=== PATIENT | female | born 1955 | race Caucasian/White ===

== ENCOUNTER 2024-02-27 15:19 | Emergency (ER) | payer MEDICARE, SELFPAY ==
[2024-02-27 15:22] VITALS: BP 160/79; PULSE 69; TEMP 36.7; O2SAT 98; BMI 34.4
--- NOTE | 2024-02-27 15:33 | US_ITS ---
[facility] [id number] Patient Name: TRUDY HI MRN: [id number] date: 1955 Sex: F Assigned Patient Location: ER Current Patient Location: ED.MAIN Accession/Order Number: [id number] Exam Date: 02/27/2024 15:45 Report Date: 02/27/2024 17:03 At the request of: JUDITH LOPEZ Procedure: US venous doppler LE LT EXAM: US venous doppler LE LT HISTORY: swelling COMPARISON: None. TECHNIQUE: Evaluation of the deep veins of the left lower extremity was performed utilizing B-mode, color flow and spectral analysis. FINDINGS: The visualized vessels comprising the deep venous systems from the common femoral vein through the calf veins demonstrate appropriate compressibility, spontaneous color Doppler flow, and augmentation of flow on spectral Doppler with distal compression. Additional findings: None. US/US venous doppler LE LT IMPRESSION: No sonographic evidence of deep venous thrombosis of the left lower extremity. Electronically authenticated by: ELISEO HOROWITZ Date: 02/27/2024 17:03
[2024-02-27 15:53] LABS: Basophils Absolute Auto 0.1 10^3/uL (0.0-0.1); Basophils Percent Auto 0.9 % (0.2-2.0); Eosinophils Absolute Auto 0.1 10^3/uL (0.0-0.7); Eosinophils Percent Auto 2.3 % (0.9-7.0); Hematocrit 39.5 % (36.0-48.0); Hemoglobin 12.9 g/dL (12.0-16.0); Immature Granulocytes Abs Auto 0.01 10^3/uL (0.00-0.03); Immature Granulocytes Pct Auto 0.2 % (0.0-0.5); Lymphocytes Percent Auto 17.4 % (20.5-60.0); Mean Corpuscular HGB Conc 32.7 g/dL (29.9-35.2); Mean Corpuscular Volume 85.9 fL (81.0-99.0); Mean Platelet Volume 11.2 fL (9.5-13.5); Monocytes Absolute Auto 0.5 10^3/uL (0.3-0.8); Monocytes Percent Auto 8.6 % (1.7-12.0); Neutrophils Percent Auto 70.6 % (43.0-75.0); Platelet Count 192 10^3/uL (150-450); Red Cell Distribution Width 13.3 % (11.0-15.0); White Blood Count 5.7 10^3/uL (4.0-11.0)
[2024-02-27 16:01] LABS: Anion Gap 14.4; BUN Creatinine Ratio 17.2; Calcium 9.8 mg/dL (8.5-10.1); Carbon Dioxide 28.3 mmol/L (21.0-32.0); Chloride 103 mmol/L (98-107); Estimated GFR (African America >60 (>=60 mL/min/1.73m^2); Estimated GFR (Non-African Ame 56 (>=60 mL/min/1.73m^2); Glucose 105 mg/dL (74-106); Potassium 3.7 mmol/L (3.5-5.1); Sodium 142 mmol/L (136-145)
--- NOTE | 2024-02-27 17:21 | ED_ITS ---
HPI HPI - General Adult General Chief complaint: Extremity Problem, Nontraumatic Stated complaint: Dr Kamara sent over Possible blood clot Time Seen by Provider: 02/27/24 15:19 Source: patient Mode of arrival: walk-in History of Present Illness HPI narrative: 60-year-old female to the emergency department chief complaint of swelling to her left yadav. Patient reports that this began over the last few days. She no ticed some discomfort and discoloration. She saw her primary care doctor today who sent her to the ER for evaluation of DVT. She is not any blood thinning medications. Related Data Allergies Allergy/AdvReac Type Severity Reaction Status Date / Time No Known Drug Allergies Allergy Verified 02/27/24 15:25 Opioid HPI Opioid Management Most Recent Opioid Data: No Data to Display Review of Systems ROS Status of ROS 10 or more systems reviewed and unremark able except as noted in history and below PFSH PFSH Social History Little interest or pleasure in doing things: not at all Feeling down, depressed, or hopeless: not at all Exam Narrative Exam Narrative: VITALS: I have reviewed the triage vital signs. GENERAL: Well developed, well appearing adult in no acute distress. NEURO: Alert and oriented. Moves all extremities. Face is symmetric and expressive. EYES: PERRL. No scleral icterus or conjunctival injection. No discharge. HENT: Normocephalic, atraumatic. Hearing is grossly intact. Nares grossly patent and without discharge. Mucous membranes moist. NECK: No JVD. Patient moves neck without restriction. Left lower extremity: DP and PT pulses are intact. Sensation is intact over the lower leg. Range of motion is normal at all joints. There is no erythema warmth or rash. There is a small area of discoloration and a thrombosed superficial vein over the anterior yadav. Minimal edema. SKIN: Warm and dry. Normal turgor. No rash or lesions appreciated. PSYCH: Mood, affect, and interaction is appropriate to the setting. Constitutional Vital Signs, click to edit/add: Last Vital Signs Temp 98.1 F 02/27/24 15:22 Pulse 69 02/27/24 15:22 Resp 16 02/27/24 15:22 BP 160/79 H 02/27/24 15:22 Pulse Ox 98 02/27/24 15:22 O2 Del Method Room Air 02/27/24 15:22 Course Vital Signs Vital signs: Vital Signs Temperature 98.1 F 02/27/24 15:22 Pulse Rate 69 02/27/24 15:22 Respiratory Rate 16 02/27/24 15:22 Blood Pressure 160/79 H 02/27/24 15:22 Pulse Oximetry 98 02/27/24 15:22 Oxygen Delivery Method Room Air 02/27/24 15:22 Temperature 98.1 F 02/27/24 15:22 Pulse Rate 69 02/27/24 15:22 Respiratory Rate 16 02/27/24 15:22 Blood Pressure 160/79 H 02/27/24 15:22 Pulse Oximetry 98 02/27/24 15:22 Oxygen Delivery Method Room Air 02/27/24 15:22 Medical Decision Making MDM Narrative Medical decision making narrative: 68-year-old female to the emergency department with concern for leg swelling and pain. Vital stable, the patient is afebrile. No chest pain or shortness of breath. Duplex and basic labs ordered. Patient agrees with this plan. There is no vascular insufficiency or evidence of infectious process. Duplex is negative for DVT. Labs unremarkable. Clinical exam is consistent with superficial vein thrombosis. Arsalan wrap, NSAIDs, follow-up with PCP. Patient was discharged home. Medical Records Medical records reviewed: Yes I reviewed the patient's medical records Lab Data Lab results reviewed: Yes I reviewed the patient's lab results Labs: Lab Results 02/27/24 Range/Units 15:43 WBC 5.7 (4.0-11.0) 10^3/uL RBC 4.60 (4.20-5.40) 10^6/uL Hgb 12.9 (12.0-16.0) g/dL Hct 39.5 (36.0-48.0) % MCV 85.9 (81.0-99.0) fL MCH 28.0 (26.7-34.0) pg MCHC 32.7 (29.9-35.2) g/dL RDW 13.3 (11.0-15.0) % Plt Count 192 (150-450) 10^3/uL MPV 11.2 (9.5-13.5) fL Neut % (Auto) 70.6 (43.0-75.0) % Lymph % (Auto) 17.4 L (20.5-60.0) % [place] % (Auto) 8.6 (1.7-12.0) % Eos % (Auto) 2.3 (0.9-7.0) % Baso % (Auto) 0.9 (0.2-2.0) % Neut # (Auto) 4.0 (1.4-6.5) 10^3/uL Lymph # (Auto) 1.0 L (1.2-3.8) 10^3/uL [place] # (Auto) 0.5 (0.3-0.8) 10^3/uL Eos # (Auto) 0.1 (0.0-0.7) 10^3/uL Baso # (Auto) 0.1 (0.0-0.1) 10^3/uL Abs Immat Gran (auto) 0.01 (0.00-0.03) 10^3/uL Imm/Tot Granulo (auto) 0.2 (0.0-0.5) % Sodium 142 (136-145) mmol/L Potassium 3.7 (3.5-5.1) mmol/L Chloride 103 (98-107) mmol/L Carbon Dioxide 28.3 (21.0-32.0) mmol/L Anion Gap 14.4 BUN 17.0 (7.0-18.0) mg/dL Creatinine 0.99 (0.55-1.02) mg/dL Est GFR ( Amer) >60 (>=60 mL/min/1.73m^2) Est GFR (Non-Af Amer) 56 L (>=60 mL/min/1.73m^2) BUN/Creatinine Ratio 17.2 Glucose 105 (74-106) mg/dL Calcium 9.8 (8.5-10.1) mg/dL Imaging Data Duplex ultrasound: Attestation: I have reviewed the pertinent imaging results. Radiologist's impression: ITS Impressions Venous Doppler Study 02/27/24 15:33 IMPRESSION: No sonographic evidence of deep venous thrombosis of the left lower extremity. Electronically authenticated by: ELISEO HOROWITZ Date: 02/27/2024 17:03 Discharge Plan Discharge Chief Complaint: Extremity Problem, Nontraumatic Clinical Impression: Acute superficial venous thrombosis of left lower extremity Patient Disposition: Home, Self-Care Time of Disposition Decision: 17:09 Condition: Good Mode of Transportation: Private Vehicle Print Language: Ukrainian Instructions: Superficial Thrombophlebitis (ED) Additional Instructions: Call the office of your primary care doctor to arrange for follow-up within the above-stated timeframe. Your ED visit was focused on your acute issue and does not replace primary care. You should review your labs, imaging, and diagnoses from this ED visit with your primary care physician. There may be non-emergent/ incidental findings that need further evaluation. You should review your vital signs including blood pressure with your PCP. If you were prescribed medications you should discuss possible side-effects and drug interactions with your pharmacist. Call 911 or go to the nearest Emergency Department if you develop any new or worsening symptoms. Use Arsalan wrap. Elevate the leg. Follow-up with your PCP. Referrals: SALAS KAMARA [Primary Care Provider] - 1 week Discharge Date/Time: 02/27/24 17:20
== END 2024-02-27 17:20 | disposition home or self-care (01) ==
PROVIDERS: Emergency Provider Student in an Organized Health Care Education/Training Program; PCP Family Medicine
DX: I82.812 Embolism and thrombosis of superficial veins of left lower extremity (principal)
CPT/HCPCS: 36415; 80048; 85025; 93971; 99285